=== PATIENT | male | born 2000 | race Caucasian/White ===

== ENCOUNTER 2020-07-04 21:07 | Observation (INO) | payer BC, SELFPAY ==
[2020-07-04 23:19] LABS: Absolute Lymphocytes (CBC) 3.1 K/uL (0.7-4.9); Basophils % 0.5 % (0-1.3); Hematocrit 48.7 % (39.6-49.0); Lymphocytes % 23.9 % (15.3-44.8); MPV 8.5 fL (7.6-11.3); RBC Red Blood Cell Count 5.58 M/uL (4.33-5.43)
[2020-07-04] MEDS ORDERED: FAMOTIDINE 20 MG/2 ML VIAL IV ONE (23:20)
[2020-07-04] MEDS ORDERED: NA CHLORIDE 0.9% 1,000 ML ONE (23:20)
[2020-07-04] MEDS ORDERED: ONDANSETRON 4 MG/2 ML VIAL ONE (23:20)
[2020-07-05 00:19] LABS: ALT/SGPT 45 U/L (12-78); Albumin 4.3 g/dL (3.4-5.0); Alkaline Phosphatase 65 U/L (45-117); BUN Blood Urea Nitrogen 16 mg/dL (7-18); Bicarbonate 24 mmol/L (21-32); Bilirubin Direct 0.1 mg/dL (0-0.2); Bilirubin Total 0.4 mg/dL (0.2-1.0); Glucose Level 90 mg/dL (74-106); Lipase 64 U/L (73-393); Protein, Total 7.8 g/dL (6.4-8.2); Sodium Level 140 mmol/L (136-145); Troponin (Emerg Dept Use Only) < 0.02 ng/mL (0.0-0.045)
[2020-07-05 00:21] LABS: AST/SGOT 57 U/L (15-37); Potassium 3.8 mmol/L (3.5-5.1)
[2020-07-05 00:22] LABS: Creatine Phosphokinase 3033 U/L (39-308)
[2020-07-05] MEDS ORDERED: NA CHLORIDE 0.9% 1,000 ML ONE ×3 (01:12→04:29)
--- NOTE | 2020-07-05 02:31 | EDPHYS ---
Physician Documentation [facility] Name: Leo Oden Age: 19 yrs Sex: Male : 2000 Arrival Date: 07/04/2020 Time: 21:13 Bed 7 Private MD: ED Physician ePrry Gerber HPI: 07/04 23:08 This 19 yrs old Male presents to ER via Ambulatory with complaints of mh7 Palpitations. 23:08 The patient presents with a history of heart racing. Context: The symptoms occur at mh7 rest, with anxiety. 23:08 Onset: The symptoms/episode began/occurred 2 day(s) ago. Duration: The patient or mh7 guardian reports multiple episodes, that are intermittent, that wax and wane. Modifying factors: The symptoms are aggravated by anxiety, The symptoms are alleviated by nothing. 23:09 Associated signs and symptoms: Pertinent positives: anxiety, nausea, vomiting, mh7 Abdominal pain, Pertinent negatives: chest pain, cough, fever, lightheadedness, SOB, syncope, near-syncope, unusual stressors, vertigo. Severity of symptoms: At their worst the symptoms were moderate yesterday, in the emergency department the symptoms have improved moderately. Historical: - Allergies: 21:25 No Known Allergies; ca1 - PMHx: 21:25 Anxiety; Depression; ca1 - PSHx: 21:25 Cholecystectomy; ca1 - Immunization history:: Flu vaccine is not up to date. - Social history:: Smoking status: Patient denies any tobacco usage or history of. ROS: 23:09 Constitutional: Negative for fever, chills, and weight loss, Eyes: Negative for injury, mh7 pain, redness, and discharge, ENT: Negative for injury, pain, and discharge, Neck: Negative for injury, pain, and swelling, Respiratory: Negative for shortness of breath, cough, wheezing, and pleuritic chest pain, Back: Negative for injury and pain, : Negative for injury, bleeding, discharge, and swelling, MS/Extremity: Negative for injury and deformity, Skin: Negative for injury, rash, and discoloration, Neuro: Negative for headache, weakness, numbness, tingling, and seizure, Allergy/Immunology: Negative for hives, rash, and allergies, Endocrine: Negative for neck swelling, polydipsia, polyuria, polyphagia, and marked weight changes, Hematologic/Lymphatic: Negative for swollen nodes, abnormal bleeding, and unusual bruising. Exam: 23:09 Head/Face: Normocephalic, atraumatic. Eyes: Pupils equal round and reactive to light, mh7 extra-ocular motions intact. Lids and lashes normal. Conjunctiva and sclera are non-icteric and not injected. Cornea within normal limits. Periorbital areas with no swelling, redness, or edema. Neck: Trachea midline, no thyromegaly or masses palpated, and no cervical lymphadenopathy. Supple, full range of motion without nuchal rigidity, or vertebral point tenderness. No Meningismus. Chest/axilla: Normal chest wall appearance and motion. Nontender with no deformity. No lesions are appreciated. Cardiovascular: Regular rate and rhythm with a normal S1 and S2. No gallops, murmurs, or rubs. Normal PMI, no JVD. No pulse deficits. Respiratory: Lungs have equal breath sounds bilaterally, clear to auscultation and percussion. No rales, rhonchi or wheezes noted. No increased work of breathing, no retractions or nasal flaring. Abdomen/GI: Soft, non-tender, with normal bowel sounds. No distension or tympany. No guarding or rebound. No evidence of tenderness throughout. Back: No spinal tenderness. No costovertebral tenderness. Full range of motion. Skin: Warm, dry with normal turgor. Normal color with no rashes, no lesions, and no evidence of cellulitis. MS/ Extremity: Pulses equal, no cyanosis. Neurovascular intact. Full, normal range of motion. Neuro: Awake and alert, GCS 15, oriented to person, place, time, and situation. Cranial nerves II-XII grossly intact. Motor strength 5/5 in all extremities. Sensory grossly intact. Cerebellar exam normal. Normal gait. 23:09 Constitutional: The patient appears in no acute distress, alert, awake, anxious. 23:09 Psych: Behavior/mood is cooperative, anxious, Affect is calm, Oriented to person, place, time, Patient has no thoughts/intents to harm self or others. Judgement / Insight is normal. Memory is normal. Delusions/hallucinations are not present. Vital Signs: 21:20 BP 111 / 89; Pulse 91; Resp 16 S; Temp 98.5(TE); Pulse Ox 98% on R/A; Weight 113.4 kg ca1 (R); Height 6 ft. 3 in. (190.50 cm) (R); Pain 0/10; 23:00 BP 135 / 74; Pulse 72; Resp 16; Pulse Ox 99% ; rr5 02 00:00 BP 126 / 68; Pulse 69; Resp 16; Pulse Ox 99% ; rr5 01:00 BP 140 / 57; Pulse 67; Resp 16; Pulse Ox 98% ; rr5 02:00 BP 135 / 89; Pulse 69; Resp 17; Pulse Ox 98% ; rr5 02:42 BP 125 / 89; Pulse 62; Resp 17; Pulse Ox 99% ; rr5 03:20 BP 136 / 89; Pulse 70; Resp 17; Pulse Ox 98% ; rr5 04:00 BP 121 / 75; Pulse 69; Resp 15; Temp 98; Pulse Ox 98% ; rr5 02 21:20 Body Mass Index 31.25 (113.40 kg, 190.50 cm) ca1 MDM: 02:28 Differential diagnosis: arrythmia, dehydration, stress disorder. Data reviewed: [facility] signs, nurses notes, lab test result(s), CBC, electrolytes, urinalysis, EKG, radiologic studies, CT scan, plain films. Data interpreted: Pulse oximetry: on room air is 98 %. Interpretation: normal. Counseling: I had a detailed discussion with the patient and/or guardian regarding: the historical points, exam findings, and any diagnostic results supporting the discharge/admit diagnosis, the presence of at least one elevated blood pressure reading (>120/80) during this emergency department visit, lab results, radiology results, the need for further work-up and treatment in the hospital. Response to treatment: the patient's symptoms have mildly improved after treatment. 02:30 Patient medically screened. [facility] 07/04 23:02 Order name: Basic Metabolic Panel [facility] 07/04 23:02 Order name: CBC with Diff; Complete Time: 00:06 [facility] 07/04 23:02 Order name: Hepatic Function [facility] 07/04 23:02 Order name: Lipase; Complete Time: 00:37 [facility] 07/04 23:02 Order name: UDS [facility] 07/04 23:02 Order name: TSH; Complete Time: 00:37 [facility] 07/04 23:02 Order name: Acetaminophen; Complete Time: 00:37 [facility] 07/04 23:02 Order name: ETOH Level; Complete Time: 00:06 [facility] 07/04 23:02 Order name: Salicylate; Complete Time: 00:06 [facility] 07/04 23:02 Order name: Basic Metabolic Panel; Complete Time: 00:37 [facility] 07/04 23:02 Order name: Liver (Hepatic) Function; Complete Time: 00:37 [facility] 07/04 23:07 Order name: Troponin (emerg Dept Use Only) [facility] 07/04 23:07 Order name: CPK [facility] 07/04 23:07 Order name: D-Dimer; Complete Time: 00:06 [facility] 07/04 23:02 Order name: Chest Single View XRAY [facility] 07/04 23:08 Order name: Troponin (Emerg Dept Use Only); Complete Time: 00:37 [facility] 07/04 23:08 Order name: Creatine Phosphokinase; Complete Time: 00:37 [facility] 07/05 00:06 Order name: CT Abd/Pelvis - IV Contrast Only [facility] 07/05 00:23 Order name: T4 Free; Complete Time: 00:37 [facility] 07/05 02:43 Order name: Urine Dipstick--Ancillary (enter results) 3 07/05 04:08 Order name: SARS-COV-2 RT PCR [facility] 07/05 05:13 Order name: Urinalysis [facility] 07/05 05:14 Order name: Basic Metabolic Panel [facility] 07/05 05:14 Order name: Creatine Phosphokinase [facility] 07/04 21:25 Order name: EKG; Complete Time: 21:26 [facility] 07/04 21:25 Order name: EKG - Nurse/Tech; Complete Time: 21:28 [facility] 07/04 23:02 Order name: IV Saline Lock; Complete Time: 23:13 [facility] 07/04 23:02 Order name: Labs collected and sent; Complete Time: 23:13 [facility] 07/04 23:02 Order name: Urine Dipstick-Ancillary (obtain specimen); Complete Time: 02:52 [facility] Administered Medications: 07/04 23:00 Drug: NS 0.9% 1000 ml Route: IV; Rate: 1000 ml; Site: right antecubital; rr5 07/05 01:00 Follow up: Response: No adverse reaction; IV Status: Completed infusion; IV Intake: rr5 1000ml 02/06 23:00 Drug: Zofran (Ondansetron) 4 mg Route: IVP; Site: right antecubital; rr5 07/05 02:02 Follow up: Response: No adverse reaction ea 07/04 23:04 Drug: Pepcid 20 mg Route: IVP; Site: right antecubital; rr5 07/05 02:02 Follow up: Response: No adverse reaction ea 01:00 Drug: NS 0.9% 1000 ml Route: IV; Rate: 1000 ml; Site: right antecubital; rr5 04:31 Follow up: Response: No adverse reaction; IV Status: Completed infusion; IV Intake: rr5 1000ml 04:30 Drug: NS 0.9% 1000 ml Route: IV; Rate: 125 ml/hr; Site: right antecubital; rr5 04:32 Follow up: IV Status: Infusion continued upon admission rr5 Disposition: 07/05/20 02:30 Hospitalization ordered by Tae Diaz for Observation. Preliminary diagnosis are Rhabdomyolysis, Vomiting. - Bed requested for [facility] ER HOLD. - Status is Observation. bp - Condition is Stable. - Problem is new. - Symptoms have improved. Signatures: Dispatcher [employer] EDPA Cem Nicholas RN RN sg Trenton Lara, HOG ROOM SUPERVISOR-C HOG ROOM SUPERVISOR-Cla1 Irving Bruner, RN RN Fred Oneil, RN RN rr5 Kari Zarate RN RN [facility] Perry Gerber MD MD mh7 Antunez, Elena RN ea Corrections: (The following items were deleted from the chart) 03:01 02:30 Hospitalization Ordered by Fred Parker MD for Observation. Preliminary la1 diagnosis is Rhabdomyolysis; Vomiting. Bed requested for Telemetry/MedSurg (observation). Status is Observation. Condition is Stable. Problem is new. Symptoms have improved. [facility] 03:06 02:37 CORONAVIRUS+MR.LAB.BRZ ordered. EDPA EDMS 03:47 03:01 07/05/2020 02:30 Hospitalization Ordered by Tae Diaz DO for Observation. sg Preliminary diagnosis is Rhabdomyolysis; Vomiting. Bed requested for Telemetry/MedSurg (observation). Status is Observation. Condition is Stable. Problem is new. Symptoms have improved. la1 08:27 03:47 07/05/2020 02:30 Hospitalization Ordered by Tae Diaz DO for Observation. bp Preliminary diagnosis is Rhabdomyolysis; Vomiting. Bed requested for [facility] ER HOLD. Status is Observation. Condition is Stable. Problem is new. Symptoms have improved. sg
--- NOTE | 2020-07-05 02:31 | ER ---
Nurse's Notes [facility] Name: Leo Oden Age: 19 yrs Sex: Male : 2000 Arrival Date: 07/04/2020 Time: 21:13 Bed 7 Private MD: Diagnosis: Rhabdomyolysis;Vomiting Presentation: 07/04 21:20 Chief complaint: Patient states: been having this weird feeling. All day today been ca1 having pain right here (epigastric region). Reports N/V. Denies diarrhea Parent and/or Guardian states: mother: he has sever anxiety and depression. 2 days ago, he complained that his heart feel like it's racing, and pounding out of his chest. Again tonight, he said the same and it could be his new medication Resperidone 2mg and stopped taking this medication 2 days ago. pt appears anxious in triage. Coronavirus screen: Client denies travel out of the [place] in the last 14 days. nausea, vomiting. Client presents with at least one sign or symptom that may indicate coronavirus-19. Standard/surgical mask placed on the client. Provider contacted for isolation considerations. Ebola Screen: Patient negative for fever greater than or equal to 101.5 degrees Fahrenheit, and additional compatible Ebola Virus Disease symptoms Patient denies exposure to infectious person. Patient denies travel to an Ebola-affected area in the 21 days before illness onset. No symptoms or risks identified at this time. Initial Sepsis Screen: Does the patient meet any 2 criteria? No. Patient's initial sepsis screen is negative. Does the patient have a suspected source of infection? No. Patient's initial sepsis screen is negative. Risk Assessment: Do you want to hurt yourself or someone else? Patient reports no desire to harm self or others. Onset of symptoms was July 04, 2020. 21:20 Method Of Arrival: Ambulatory ca1 21:20 Acuity: SOPHIA 3 ca1 Historical: - Allergies: 21:25 No Known Allergies; ca1 - PMHx: 21:25 Anxiety; Depression; ca1 - PSHx: 21:25 Cholecystectomy; ca1 - Immunization history:: Flu vaccine is not up to date. - Social history:: Smoking status: Patient denies any tobacco usage or history of. Screenin:01 Abuse screen: Denies threats or abuse. Denies injuries from another. Nutritional rr5 screening: No deficits noted. Tuberculosis screening: No symptoms or risk factors identified. Fall Risk IV access (20 points). Total Camejo Fall Scale indicates No Risk (0-24 pts). Assessment: 22:50 General: Appears in no apparent distress. uncomfortable, Behavior is anxious. rr5 22:50 Pain: Complains of pain in epigastric area Pain currently is 5 out of 10 on a pain rr5 scale. Quality of pain is described as aching, Pain began gradually, Is intermittent. Neuro: Level of Consciousness is awake, alert, obeys commands, Oriented to person, place, time, situation. Cardiovascular: Reports palpitations, Capillary refill < 3 seconds Patient's skin is warm and dry. Respiratory: Airway is patent Respiratory effort is even, unlabored, Respiratory pattern is regular, symmetrical. GI: Reports upper abdominal pain, nausea. : No signs and/or symptoms were reported regarding the genitourinary system. EENT: No signs and/or symptoms were reported regarding the EENT system. Derm: Skin is intact, is healthy with good turgor, Skin temperature is warm. Musculoskeletal: Circulation, motion, and sensation intact. Capillary refill < 3 seconds. 07/05 00:05 Reassessment: Patient appears in no apparent distress at this time. Patient and/or rr5 family updated on plan of care and expected duration. Pain level reassessed. Patient is alert, oriented x 3, equal unlabored respirations, skin warm/dry/pink. awaiting for results. 01:00 Reassessment: Patient appears in no apparent distress at this time. Patient is alert, rr5 oriented x 3, equal unlabored respirations, skin warm/dry/pink. back from CT scan. Reassessment:. 02:20 Reassessment: Patient appears in no apparent distress at this time. Patient is alert, rr5 oriented x 3, equal unlabored respirations, skin warm/dry/pink. patient agreed for admission. 03:20 Reassessment: Patient appears in no apparent distress at this time. Patient and/or rr5 family updated on plan of care and expected duration. Pain level reassessed. Patient is alert, oriented x 3, equal unlabored respirations, skin warm/dry/pink. 04:32 Reassessment: Patient appears in no apparent distress at this time. Patient is alert, rr5 oriented x 3, equal unlabored respirations, skin warm/dry/pink. no complaints made, admitted as ER hold. snacks given with good appetite. Vital Signs: 07/04 21:20 BP 111 / 89; Pulse 91; Resp 16 S; Temp 98.5(TE); Pulse Ox 98% on R/A; Weight 113.4 kg ca1 (R); Height 6 ft. 3 in. (190.50 cm) (R); Pain 0/10; 23:00 BP 135 / 74; Pulse 72; Resp 16; Pulse Ox 99% ; rr5 07/05 00:00 BP 126 / 68; Pulse 69; Resp 16; Pulse Ox 99% ; rr5 01:00 BP 140 / 57; Pulse 67; Resp 16; Pulse Ox 98% ; rr5 02:00 BP 135 / 89; Pulse 69; Resp 17; Pulse Ox 98% ; rr5 02:42 BP 125 / 89; Pulse 62; Resp 17; Pulse Ox 99% ; rr5 03:20 BP 136 / 89; Pulse 70; Resp 17; Pulse Ox 98% ; rr5 04:00 BP 121 / 75; Pulse 69; Resp 15; Temp 98; Pulse Ox 98% ; rr5 02 21:20 Body Mass Index 31.25 (113.40 kg, 190.50 cm) ca1 ED Course: 07/04 21:13 Patient arrived in ED. am4 21:24 Triage completed. ca1 21:25 Arm band placed on right wrist. ca1 22:45 Perry Gerber MD is Attending Physician. mh7 22:46 Fred Trotter RN is Primary Nurse. rr5 23:00 Inserted saline lock: 20 gauge in right antecubital area, using aseptic technique. ea 23:01 Patient has correct armband on for positive identification. Bed in low position. Call rr5 light in reach. clerk of superior court on. Pulse ox on. NIBP on. 23:13 Initial lab(s) drawn, by ED staff, sent to lab. ea 23:27 Chest Single View XRAY In Process Unspecified. EDMS 07/05 00:22 Notified ED physician of a critical lab result(s). CPK 3033. sg 01:12 CT Abd/Pelvis - IV Contrast Only In Process Unspecified. EDMS 02:30 Fred Parker MD is Hospitalizing Provider. mh7 02:43 COVID swab sent to lab. rr5 03:01 Tae Diaz DO is Hospitalizing Provider. la1 04:32 No provider procedures requiring assistance completed. Patient admitted, IV remains in rr5 place. intact, No redness/swelling at site. 08:07 IV discontinued, intact, bleeding controlled, No redness/swelling at site. Pressure em1 dressing applied. Administered Medications: 07/04 23:00 Drug: NS 0.9% 1000 ml Route: IV; Rate: 1000 ml; Site: right antecubital; rr5 07/05 01:00 Follow up: Response: No adverse reaction; IV Status: Completed infusion; IV Intake: rr5 1000ml 07/04 23:00 Drug: Zofran (Ondansetron) 4 mg Route: IVP; Site: right antecubital; rr5 07/05 02:02 Follow up: Response: No adverse reaction ea 07/04 23:04 Drug: Pepcid 20 mg Route: IVP; Site: right antecubital; rr5 07/05 02:02 Follow up: Response: No adverse reaction ea 01:00 Drug: NS 0.9% 1000 ml Route: IV; Rate: 1000 ml; Site: right antecubital; rr5 04:31 Follow up: Response: No adverse reaction; IV Status: Completed infusion; IV Intake: rr5 1000ml 04:30 Drug: NS 0.9% 1000 ml Route: IV; Rate: 125 ml/hr; Site: right antecubital; rr5 04:32 Follow up: IV Status: Infusion continued upon admission rr5 Intake: 01:00 IV: 1000ml; Total: 1000ml. rr5 04:31 IV: 1000ml; Total: 2000ml. rr5 Outcome: 02:30 Decision to Hospitalize by Provider. mh7 04:32 Admitted to ER Hold. Please see [facility] for further documentation. rr5 04:32 Condition: stable 04:32 Instructed on the need for admit. 08:27 Patient left the ED. bp Signatures: Dispatcher [employer] EDMS Cem Nicholas RN Tristen Serrano em1 Trenton Lara, PROMOTIONAL ADVERTISING ASSISTANT-C PROMOTIONAL ADVERTISING ASSISTANT-Cla1 Poonam Mao RN RN ea Peltier, Brian RN Fred Campos RN RN rr5 Kari Zarate RN ELVIA ca1 Perry Gerber MD MD 7 [place]
[2020-07-05 02:51] LABS: Urine Blood NEGATIVE (NEG); Urine Glucose NEGATIVE (NEG); Urine Protein NEGATIVE (NEG)
[2020-07-05 03:25] LABS: Barbiturates NEGATIVE (NEGATIVE); Benzodiazepines NEGATIVE (NEGATIVE); Cocaine NEGATIVE (NEGATIVE); METHAMPHETAM NEGATIVE (NEGATIVE); Methadone NEGATIVE (NEGATIVE); Opiates NEGATIVE (NEGATIVE); Phencyclidine NEGATIVE (NEGATIVE); THC Cannibis POSITIVE (NEGATIVE)
--- NOTE | 2020-07-05 03:47 | P.HP ---
Certification for Inpatient Patient admitted to: Observation Patient will require the following post-hospital care: None Practitioner: I am a practitioner with admitting privileges, knowledge of patient current condition, hospital course, and medical plan of care. Services: Services provided to patient in accordance with Admission requirements found in Title 42 Section 412.3 of the Code of Federal Regulations <JaneTrenton - Last Filed: 07/05/20 03:43> Patient admitted to: Observation With expected LOS: <2 Midnights <Tae Diaz - Last Filed: 07/05/20 07:28> Patient History Date of Service: 07/05/20 Primary Care Provider: unknown Reason for admission: Rhabdomyolysis History of Present Illness: 19-year-old male with history of severe anxiety presents emergency department for palpitations, nausea vomiting. Patient reports that over the course of the last couple days he has been having palpitations and just today he started having vomiting reporting vomiting 3-4 times today. Patient without any abdominal pain, currently tolerating clear liquids. Patient reports that he was prescribed risperidone 2 mg once daily, on 05/07/2020, he felt like this may be the reason he is having the palpitations so she discontinued this medication approximately 2 days ago. Patient was worked up in the emergency department lab significant for white blood cell count 13.1, GFR 84 CPK 3033 TSH 3.91, free T4 1.11 positive for THC. The patient was given 2 L normal saline bolus in the emergency department on, ED provider wishes to admit patient under observation for nausea, vomiting, rhabdomyolysis. - Past Medical/Surgical History -: Anxiety -: none Psychosocial/ Personal History: Patient unemployed, lives with his family - Social History Smoking Status: Never smoker Alcohol use: No CD- Drugs: Yes Caffeine use: Yes Place of Residence: Home <Trenton Lara - Last Filed: 07/05/20 03:43> Date of Service: 07/05/20 Primary Care Provider: Dr. Serna; [facility] <Tae Diaz - Last Filed: 07/05/20 07:28> Allergies No Known Allergies Allergy (Verified 01/26/15 16:11) Home Medications: Codeine/APAP [Tylenol W/Codeine #3 tab] 1 tab PO Q4H PRN #30 tab 01/28/15 Sulfamethoxazole/Trimethoprim [Bactrim Ds Tablet] 1 each PO BID #10 tablet 01/28/15 Review of Systems Unremarkable Cardiovascular: Palpitations Gastrointestinal: Nausea, Vomiting <Trenton Lara - Last Filed: 07/05/20 03:43> Physical Examination - Physical Exam General: Alert, In no apparent distress HEENT: Atraumatic, PERRLA, Mucous membr. moist/pink Neck: Supple, 2+ carotid pulse no bruit, No LAD Respiratory: Clear to auscultation bilaterally, Normal air movement Cardiovascular: Regular rate/rhythm, Normal S1 S2 Gastrointestinal: Normal bowel sounds, No tenderness Musculoskeletal: No tenderness Integumentary: No rashes Neurological: Normal speech, Normal strength at 5/5 x4 extr, Normal tone, Normal affect - Studies Laboratory Data (last 24 hrs) 07/04/20 23:10: WBC 13.10 H, Hgb 16.1, Hct 48.7, Plt Count 185 07/04/20 23:10: Sodium 140, Potassium 3.8, BUN 16, Creatinine 1.11, Glucose 90, Total Bilirubin 0.4, AST 57 H, ALT 45, Alkaline Phosphatase 65, Lipase 64 L <Trenton Lara - Last Filed: 07/05/20 03:43> - Studies Laboratory Data (last 24 hrs) 07/04/20 23:10: WBC 13.10 H, Hgb 16.1, Hct 48.7, Plt Count 185 07/04/20 23:10: Sodium 140, Potassium 3.8, BUN 16, Creatinine 1.11, Glucose 90, Total Bilirubin 0.4, AST 57 H, ALT 45, Alkaline Phosphatase 65, Lipase 64 L <Tae Diaz - Last Filed: 07/05/20 07:28> Assessment and Plan - Plan Assessment Rhabdomyolysis likely secondary to combination of nausea/vomiting and use of risperidone Plan Rhabdomyolysis likely secondary to combination of nausea/vomiting and use of risperidone: Patient to 2 L normal saline bolus in ER, continue with maintenance fluids overnight, recheck CPK in the morning. Recommend holding risperidone. Advance diet as tolerated, p.r.n. medications for nausea. Chemistry with morning labs. Anticipate discharge tomorrow morning. Discharge Plan: Home Plan to discharge in: 24 Hours - Advance Directives Does patient have a Living Will: No Does patient have a Durable POA for Healthcare: No - Code Status/Comfort Care Code Status Assessed: Yes (Full code) Critical Care: No Time Spent Managing Pts Care (In Minutes): 55 <Trenton Lara - Last Filed: 07/05/20 03:43> - Plan Case discussed in detail with nurse practitioner. Agree with plan of care. Please see discharge order and summary for details. <Tae Diaz - Last Filed: 07/05/20 07:28>
[2020-07-05] MEDS ORDERED: MELATONIN 5 MG TABLET PO PRN (04:11)
[2020-07-05] MEDS ORDERED: ONDANSETRON 4 MG/2 ML VIAL IV PRN (04:11)
[2020-07-05] MEDS ORDERED: NA CHLORIDE 0.9% 1,000 ML IV SCH (04:11)
[2020-07-05] MEDS ORDERED: ACETAMINOPHEN 500 MG TAB PO PRN (04:11)
[2020-07-05 04:42] VITALS: BMI 31.1
[2020-07-05 05:06] LABS: Urine Appearance CLEAR; Urine Bilirubin NEGATIVE (NEG); Urine Blood NEGATIVE (NEG); Urine Color YELLOW; Urine Glucose NEGATIVE (NEG); Urine Protein NEGATIVE (NEG); Urine Specific Gravity >=1.030 (1.005-1.030); Urine Urobilinogen 0.2 mg/dL (0.2-1.0)
[2020-07-05 05:12] LABS: BUN Blood Urea Nitrogen 12 mg/dL (7-18); Bicarbonate 25 mmol/L (21-32); Glucose Level 91 mg/dL (74-106); Potassium 4.1 mmol/L (3.5-5.1); Sodium Level 140 mmol/L (136-145)
[2020-07-05 05:13] LABS: Urine Microscopic Reflex NO UMIC
[2020-07-05 05:13] LABS: Creatine Phosphokinase 2071 U/L (39-308)
[2020-07-05] MEDS ORDERED: NA CHLORIDE 0.9% 500 ML ONE (06:36)
[2020-07-05] MEDS ORDERED: NA CHLORIDE 0.9% 500 ML IV ONE (07:21)
--- NOTE | 2020-07-05 07:37 | P.DS ---
Admission Date: 07/05/20 Discharge Date: 07/05/20 Primary Care Provider: Dr. Serna; [facility] Disposition: ROUTINE DISCHARGE Discharge Condition: GOOD Reason for Admission: Acute rhabdomyolysis Consultations: none Procedures: COVID: Negative Medical problem list: Rhabdomyolysis likely secondary to combination of nausea/vomiting and use of risperidone Depression with anxiety THC use Brief History of Present Illness: 19-year-old male with history of depression/severe anxiety presents emergency department for palpitations, nausea, and vomiting. Patient reports that over the course of the last couple days he has been having palpitations and just today he started having vomiting reporting vomiting 3-4 times today. Patient without any abdominal pain, currently tolerating clear liquids. Patient reports that he was prescribed risperidone 2 mg once daily, on 05/07/2020, he felt like this may be the reason he is having the palpitations so he discontinued this medication approximately 2 days ago. In the ER, lab significant for white blood cell count 13.1, GFR 84 CPK 3033 TSH 3.91, free T4 1.11 positive for THC. Patient was admitted for further evaluation and treatment. Hospital Course: Patient presented with nausea, vomiting and palpitation. Patient found to have acute rhabdomyolysis. Patient had been seen at the [facility] for depression and severe anxiety. Patient reports starting risperidone over the past several weeks. He apparently stopped the medication about 2 days ago due to the recent side effects. Patient was evaluated numbers acute rhabdomyolysis. Patient was also positive for THC which he reports he takes for anxiety. The patient was given IV fluids with improvement. Patient without significant nausea, vomiting. Discharge lab-CPK improved. At discharge will recommend to increase fluid intake over the next week. Will also recommend to discontinue risperidone as this may be a contributing cause to nausea, vomiting and palpitation. Recommend to decrease THC as this may also increased nausea and vomiting. Recommend for the patient to follow up with his PCP within 1 week. Recommend to recheck lab-CBC, BMP and CPK at that time. Recommend to also follow up at the [facility] to further evaluate his depression with anxiety. Other alternative medication may be required. This can be done with the help of his psychiatrist. General: Alert, In no apparent distress, Oriented x3, Cooperative HEENT: Atraumatic Neck: Supple Respiratory: Clear to auscultation bilaterally, Normal air movement Cardiovascular: Normal pulses, Regular rate/rhythm Gastrointestinal: Normal bowel sounds, No ascites, No tenderness, No masses, No rebound, No guarding Musculoskeletal: No erythema, No tenderness, No warmth Neurological: Normal speech, Normal strength at 5/5 x4 extr, Normal tone, Abnormal affect (Flat affect. Suicidal ideation. Patient appears to be at his baseline mentation.) Laboratory Data at Discharge: WBC 13.10 K/uL (4.3-10.9) H 07/04/20 23:10 Hgb 16.1 g/dL (13.6-17.9) 07/04/20 23:10 Hct 48.7 % (39.6-49.0) 07/04/20 23:10 Plt Count 185 K/uL (152-406) 07/04/20 23:10 Sodium 140 mmol/L (136-145) 07/05/20 04:20 Potassium 4.1 mmol/L (3.5-5.1) 07/05/20 04:20 BUN 12 mg/dL (7-18) 07/05/20 04:20 Creatinine 0.93 mg/dL (0.55-1.3) 07/05/20 04:20 Glucose 91 mg/dL (74-106) 07/05/20 04:20 Total Bilirubin 0.4 mg/dL (0.2-1.0) 07/04/20 23:10 AST 57 U/L (15-37) H 07/04/20 23:10 ALT 45 U/L (12-78) 07/04/20 23:10 Alkaline Phosphatase 65 U/L (45-117) 07/04/20 23:10 Lipase 64 U/L (73-393) L 07/04/20 23:10 Physician Discharge Instructions: Follow up with PCP in 1 week. Patient presented with nausea, vomiting and palpitation. Patient found to have acute rhabdomyolysis. Patient had been seen at the [facility] for depression and severe anxiety. Patient reports starting risperidone over the past several weeks. He apparently stopped the medication about 2 days ago due to the recent side effects. Patient was evaluated numbers acute rhabdomyolysis. Patient was also positive for THC which he reports he takes for anxiety. The patient was given IV fluids with improvement. Patient without significant nausea, vomiting. Discharge lab-CPK improved. At discharge will recommend to increase fluid intake over the next week. Will also recommend to discontinue risperidone as this may be a contributing cause to nausea, vomiting and palpitation. Recommend to decrease THC as this may also increased nausea and vomiting. Recommend for the patient to follow up with his PCP within 1 week. Recommend to recheck lab-CBC, BMP and CPK at that time. Recommend to also follow up at the [facility] to further evaluate his depression with anxiety. Other alternative medication may be required. This can be done with the help of his psychiatrist. Diet: Regular Activity: Ad ashlie Followup: Kel Granger PA [Primary Care Provider] - Time spent managing pt's care (in minutes): 55
[2020-07-05 07:50] VITALS: BP 136/70; TEMP 99.1
[2020-07-05 08:39] VITALS: O2SAT 98
[2020-07-05] MEDS ORDERED: ENOXAPARIN 40 MG/0.4 ML SQ SCH (09:00)
--- NOTE | 2020-07-05 12:20 | RAD REPORT ---
EXAM DESCRIPTION: RAD - Chest Single View - 07/04/2020 11:28 pm CLINICAL HISTORY: PALPITATIONS Chest pain. COMPARISON: CTANGIO CHEST FOR PE dated 04/13/2013CHEST PA AND LAT 2 VIEW dated 03/07/2008 FINDINGS: Portable technique limits examination quality. The lungs are grossly clear. The heart is normal in size. No displaced fractures. IMPRESSION: No acute intrathoracic process suspected.
--- NOTE | 2020-07-06 11:47 | RAD REPORT ---
EXAM DESCRIPTION: CT Abdomen and Pelvis With Intravenous Contrast CLINICAL HISTORY: The patient is 19 years old and is Male; Abd pain;Nausea / vomiting TECHNIQUE: Axial computed tomography images of the abdomen and pelvis with intravenous contrast. S agittal and coronal reformatted images were created and reviewed. This CT exam was performed using one or more of the following dose reduction techniques: automated exposure control, adjustment of t he mA and/or kV according to patient size, and/or use of iterative reconstruction technique.DLP: 165 0 mGy*cm COMPARISON: None. FINDINGS: LUNG BASES: Lung bases are clear.HEART: Visualized heart is normal.ABDOMEN: LIVER: Unremarkable. No mass.GALLBLADDER AND BILE DUCTS: Prior cholecystectomy. No ductal di lation.PANCREAS: Unremarkable. No mass. No ductal dilation.SPLEEN: Unremarkable. No splen omegaly.ADRENALS: Unremarkable. No mass.KIDNEYS AND URETERS: Unremarkable. No solid mass. No hydronephrosis.STOMACH AND BOWEL: Unremarkable. No obstruction. No mucosal thickening.PELV IS: APPENDIX: The appendix is seen and is within normal limits.BLADDER: Unremarkable. No mas s.REPRODUCTIVE: Unremarkable as visualized.ABDOMEN and PELVIS: INTRAPERITONEAL SPACE: Unremarka ble. No free air. No significant fluid collection.BONES/JOINTS: Small retrolisthesis of L4 on L5 and associated spondylosis with spinal canal and right foraminal narrowing. No acute fract ure. No dislocation.SOFT TISSUES: Unremarkable.VASCULATURE: Unremarkable. No abdominal aort ic aneurysm.LYMPH NODES: Unremarkable. No enlarged lymph nodes. IMPRESSION: 1. No acute abdominal or pelvic abnormality. 2. Small retrolisthesis of L4 on L5 and associated spondylosis with spinal canal and right foraminal narrowing. Nonemergent MR lumbar spin e evaluation may be of diagnostic use. Electronically signed by: Isreal Heck DO 07/05/2020 1:24 AM RADIOGRAPHER Due to temporary technical issues with the PACS/Fluency reporting system, reports are being signed by the in house radiologist without review as a courtesy to ensure prompt reporting. The interpreting r adiologist is fully responsible for the content of the report.
== END 2020-07-05 08:24 | disposition home or self-care (01) ==
LOC: ER 21:07 → ERHOLD 07-05 03:02
PROVIDERS: ADMIT Family Medicine; ATTEND Family Medicine
DX: M62.82 Rhabdomyolysis (principal); R11.2 Nausea with vomiting, unspecified; T43.595A Adverse effect of other antipsychotics and neuroleptics, initial encounter; F41.8 Other specified anxiety disorders; F12.90 Cannabis use, unspecified, uncomplicated; Z20.822 Contact with and (suspected) exposure to COVID-19
CPT/HCPCS: 36415; 71045; 74177; 80048; 80076; 80307; 80320; 80329; 81003; 82550; 83690; 84439; 84443; 84484; 85025; 85379; 93005; 96361; 96374; 96375; 99285; G0378; J2405; J7030; J7040; Q9967; U0003

== ENCOUNTER 2020-07-08 17:32 | Emergency (ER) | payer SELFPAY ==
[2020-07-08 19:14] LABS: Absolute Lymphocytes (CBC) 4.3 K/uL (0.7-4.9); Basophils % 0.5 % (0-1.3); Hematocrit 46.4 % (39.6-49.0); Lymphocytes % 34.4 % (15.3-44.8); MPV 8.2 fL (7.6-11.3); RBC Red Blood Cell Count 5.41 M/uL (4.33-5.43)
[2020-07-08 19:15] LABS: Urine Blood NEGATIVE (NEG); Urine Glucose NEGATIVE (NEG); Urine Protein NEGATIVE (NEG)
[2020-07-08 19:22] LABS: Urine Bacteria <20 /HPF (NONE SEEN); Urine Mucus 1+ /HPF (NONE SEEN); Urine RBC NONE SEEN /HPF (NONE SEEN)
[2020-07-08] MEDS ORDERED: NA CHLORIDE 0.9% 1,000 ML ONE (19:28)
[2020-07-08 19:30] LABS: Albumin 4.4 g/dL (3.4-5.0); Bilirubin Direct 0.2 mg/dL (0-0.2); Bilirubin Total 0.6 mg/dL (0.2-1.0); Potassium 3.6 mmol/L (3.5-5.1); Protein, Total 7.8 g/dL (6.4-8.2)
[2020-07-08 19:31] LABS: Barbiturates NEGATIVE (NEGATIVE); Benzodiazepines NEGATIVE (NEGATIVE); Cocaine NEGATIVE (NEGATIVE); METHAMPHETAM NEGATIVE (NEGATIVE); Methadone NEGATIVE (NEGATIVE); Opiates NEGATIVE (NEGATIVE); Phencyclidine NEGATIVE (NEGATIVE); THC Cannibis POSITIVE (NEGATIVE)
--- NOTE | 2020-07-08 20:07 | RAD REPORT ---
EXAM DESCRIPTION: CT - Abdomen Pelvis W Contrast - 07/08/2020 7:54 pm CLINICAL HISTORY: Abdominal pain COMPARISON: July 05, 2020 TECHNIQUE: Computed axial tomography of the abdomen pelvis was obtained. 100 cc Isovue-300 was admin istered intravenously. Oral contrast was not requested which limits evaluation of bowel. All CT scans are performed using dose optimization technique as appropriate and may include automated exposure control or mA/KV adjustment according to patient size. FINDINGS: The liver, spleen, pancreas, adrenal and kidneys appear unremarkable. There is no evidence of diverticulitis. Normal appendix Cholecystectomy. Slight posterior subluxation L4 on L5 and L5 on S1 IMPRESSION: No acute abnormality is displayed.
--- NOTE | 2020-07-08 20:51 | ER ---
Nurse's Notes [facility] Name: Leo Oden Age: 19 yrs Sex: Male : 2000 Arrival Date: 07/08/2020 Time: 17:33 Bed 23 Private MD: Diagnosis: Upper abdominal pain, unspecified;Low back pain Presentation: 07/08 17:48 Chief complaint: Patient states: left low back pain only at night. "I can't keep sv hydrated during the night because I'm asleep. I was talking with my mental doctor and they told me to come in." Pt reports being seen here a few days ago for "muscle breakdown.". Coronavirus screen: Client denies travel out of the [place] in the last 14 days. At this time, the client does not indicate any symptoms associated with coronavirus-19. Ebola Screen: No symptoms or risks identified at this time. Risk Assessment: Do you want to hurt yourself or someone else? Patient reports no desire to harm self or others. Onset of symptoms was 2020. 17:48 Method Of Arrival: Ambulatory sv 17:48 Acuity: SOPHIA 4 sv 17:49 Initial Sepsis Screen: Does the patient meet any 2 criteria? No. Patient's initial sv sepsis screen is negative. Does the patient have a suspected source of infection? No. Patient's initial sepsis screen is negative. 18:46 Acuity: SOPHIA 3 iw Triage Assessment: 17:51 General: Appears in no apparent distress. comfortable, Behavior is calm, cooperative, sv appropriate for age. Neuro: Level of Consciousness is awake, alert, obeys commands, Oriented to person, place, time, situation, Gait is steady. Respiratory: Respiratory effort is even, unlabored. Historical: - Allergies: 17:49 No Known Allergies; sv - PMHx: 17:49 Anxiety; Depression; sv - PSHx: 17:49 Cholecystectomy; sv - Immunization history:: Adult Immunizations unknown. - Social history:: Smoking status: Patient/guardian denies using alcohol, tobacco products. Screenin:51 Abuse screen: Denies threats or abuse. Denies injuries from another. Nutritional iw screening: No deficits noted. Tuberculosis screening: No symptoms or risk factors identified. 20:00 Fall Risk None identified. lc1 Assessment: 18:50 General: Appears in no apparent distress. Behavior is calm, cooperative. Pain: iw Complains of pain in left mid back and right mid back. Neuro: Level of Consciousness is awake, alert, obeys commands, Oriented to person, place, time, situation, Moves all extremities. Full function. Cardiovascular: Patient's skin is warm and dry. Respiratory: Respiratory effort is even, unlabored, Respiratory pattern is regular, symmetrical. GI: Bowel sounds present X 4 quads. Abd is soft X 4 quads. Musculoskeletal: Range of motion: intact in all extremities. 20:00 Reassessment: No changes from previously documented assessment. Patient and/or family lc1 updated on plan of care and expected duration. Pain level reassessed. 21:11 Reassessment: No changes from previously documented assessment. Patient and/or family lc1 updated on plan of care and expected duration. Pain level reassessed. Vital Signs: 17:49 BP 116 / 67; Pulse 76; Resp 16; Temp 98.8; Pulse Ox 99% ; Weight 113.4 kg; Height 6 ft. sv 3 in. (190.50 cm); Pain 0/10; 19:17 BP 114 / 70; Pulse 53; Resp 16; Pulse Ox 98% on R/A; iw 20:00 BP 121 / 57; Pulse 59; Resp 18; lc1 21:07 BP 123 / 58; Pulse 74; Resp 18; lc1 17:49 Body Mass Index 31.25 (113.40 kg, 190.50 cm) sv ED Course: 17:33 Patient arrived in ED. ag5 17:48 Arm band placed on. sv 17:49 Triage completed. sv 18:04 Rachana Goodman, ELVIA is Primary Nurse. iw 18:16 Walker Plummer PA is PHCP. cp 18:16 Rene Valentin MD is Attending Physician. cp 19:05 Initial lab(s) drawn, by tn, sent to lab. Inserted saline lock: 20 gauge in right iw antecubital area, using aseptic technique. Blood collected. 19:[address] via wheelchair. lc1 19:53 CT Abd/Pelvis - IV Contrast Only In Process Unspecified. EDMS 20:00 Awaiting radiology results. lc1 20:00 Patient has correct armband on for positive identification. Bed in low position. Call lc1 light in reach. Side rails up X 1. 21:11 No provider procedures requiring assistance completed. IV discontinued, intact, lc1 bleeding controlled, No redness/swelling at site. Pressure dressing applied. Administered Medications: 19:17 Drug: NS 0.9% 1000 ml Route: IV; Rate: 1 bolus; Site: right antecubital; iw 20:23 Follow up: IV Status: Completed infusion; IV Intake: 1000ml lc1 Intake: 20:23 IV: 1000ml; Total: 1000ml. lc1 Outcome: 20:50 Discharge ordered by MD. cp 21:11 Discharged to home ambulatory. lc1 21:11 Condition: good 21:11 Discharge instructions given to patient, Instructed on discharge instructions, medication usage, Demonstrated understanding of instructions, medications, Prescriptions given X 1. 21:15 Patient left the ED. lc1 Signatures: Dispatcher [employer] EDRosa Swain RN Rachana Cee RN RN iw Calhoun, Beatriz lc1 Walker Plummer PA PA Castillo Mukherjee ag5 Corrections: (The following items were deleted from the chart) 17:52 17:49 Pulse 76bpm; Resp 16bpm; Pulse Ox 99%; Temp 98.8F; 113.4 kg; Height 6 ft. 3 in.; sv BMI: 31.2; Pain 0/10; sv
--- NOTE | 2020-07-08 20:51 | EDPHYS ---
Physician Documentation [facility] Name: Leo Oden Age: 19 yrs Sex: Male : 2000 Arrival Date: 07/08/2020 Time: 17:33 Bed 23 Private MD: ED Physician Rene Valentin HPI: 07/08 18:45 This 19 yrs old Male presents to ER via Ambulatory with complaints of Back cp Pain. 18:45 The patient presents with pain that is acute, with no known mechanism of injury. The cp symptoms are located in the left low back. The pain does not radiate. Associated signs and symptoms: Pertinent positives: upper abdomen pain. Patient reports recent hospitalization and discharge for rhabdomyolysis. Reports having similar pain when diagnosed with rhabdomyolysis. Denies fever. Historical: - Allergies: 17:49 No Known Allergies; sv - PMHx: 17:49 Anxiety; Depression; sv - PSHx: 17:49 Cholecystectomy; sv - Immunization history:: Adult Immunizations unknown. - Social history:: Smoking status: Patient/guardian denies using alcohol, tobacco products. ROS: 19:00 Constitutional: Negative for body aches, chills, fever, poor PO intake. cp 19:00 Eyes: Negative for injury, pain, redness, and discharge. cp 19:00 ENT: Negative for ear pain, sore throat, difficulty swallowing, difficulty handling secretions. 19:00 Cardiovascular: Negative for chest pain, edema, palpitations. 19:00 Respiratory: Negative for cough, shortness of breath, wheezing. 19:00 Abdomen/GI: Positive for abdominal pain, Negative for vomiting, diarrhea, constipation, anorexia, black/tarry stool, rectal bleeding, bowel incontinence. 19:00 Back: Positive for pain at rest, pain with movement, of the low back area. 19:00 : Negative for urinary symptoms, bladder incontinence, testicular pain 19:00 Neuro: Negative for altered mental status, headache, numbness, weakness. 19:00 All other systems are negative. Exam: 19:05 Constitutional: The patient appears in no acute distress, alert, awake, cp non-diaphoretic, non-toxic, well developed, well nourished. 19:05 Head/Face: Normocephalic, atraumatic. cp 19:05 Eyes: Periorbital structures: appear normal, Conjunctiva: normal, no exudate, no injection, Sclera: no appreciated abnormality, Lids and lashes: appear normal, bilaterally. 19:05 ENT: External ear(s): are unremarkable, Nose: is normal, Mouth: Lips: moist, Oral mucosa: moist, Posterior pharynx: Airway: no evidence of obstruction, patent. 19:05 Neck: ROM/movement: is normal, is supple, without pain, no range of motions limitations, no meningismus. 19:05 Chest/axilla: Inspection: normal, Palpation: is normal, no crepitus, no tenderness. 19:05 Cardiovascular: Rate: normal, Rhythm: regular, Edema: is not appreciated, JVD: is not appreciated. 19:05 Respiratory: the patient does not display signs of respiratory distress, Respirations: normal, no use of accessory muscles, no retractions, labored breathing, is not present, Breath sounds: are clear throughout, no decreased breath sounds, no stridor, no wheezing. 19:05 Abdomen/GI: Inspection: abdomen appears normal, Bowel sounds: active, all quadrants, Palpation: soft, in all quadrants, mild abdominal tenderness, in the epigastric area, rebound tenderness, is not appreciated, voluntary guarding, is not appreciated, involuntary guarding, is not appreciated. 19:05 Back: pain, that is mild, of the low back area, ROM is normal, CVA tenderness, is absent. 19:05 Skin: no rash present. 19:05 Neuro: Orientation: to person, place \T\ time. Mentation: is normal, Motor: moves all fours, strength is normal. Vital Signs: 17:49 BP 116 / 67; Pulse 76; Resp 16; Temp 98.8; Pulse Ox 99% ; Weight 113.4 kg; Height 6 ft. sv 3 in. (190.50 cm); Pain 0/10; 19:17 BP 114 / 70; Pulse 53; Resp 16; Pulse Ox 98% on R/A; iw 20:00 BP 121 / 57; Pulse 59; Resp 18; lc1 21:07 BP 123 / 58; Pulse 74; Resp 18; lc1 17:49 Body Mass Index 31.25 (113.40 kg, 190.50 cm) sv MDM: 18:20 Patient medically screened. cp 19:00 Differential diagnosis: Pyelonephritis Ureterolithiasis pancreatitis, cp choledocholithiasis, GERD, rhabdomyolysis. 20:48 Data reviewed: vital signs, nurses notes, lab test result(s), radiologic studies, CT cp scan. Counseling: I had a detailed discussion with the patient and/or guardian regarding: the historical points, exam findings, and any diagnostic results supporting the discharge/admit diagnosis, lab results, radiology results, to return to the emergency department if symptoms worsen or persist or if there are any questions or concerns that arise at home. Response to treatment: the patient's symptoms have markedly improved after treatment, patient is well hydrated. VSS. Reviewed results of labs and radiology studies. Will discharge to home for continued monitoring and oral hydration. 07/08 18:39 Order name: Basic Metabolic Panel cp 07/08 18:39 Order name: CBC with Diff cp 07/08 18:39 Order name: Hepatic Function cp 07/08 18:39 Order name: Lipase cp 07/08 18:39 Order name: Urine Microscopic Only cp 07/08 18:39 Order name: CK; Complete Time: 19:34 cp 07/08 19:34 Interpretation: CPK 310; Reviewed. cp 07/08 18:39 Order name: UDS; Complete Time: 19:34 cp 07/08 18:40 Order name: Basic Metabolic Panel; Complete Time: 19:34 EDMS 07/08 18:40 Order name: CBC with Automated Diff; Complete Time: 19:34 EDMS 07/08 18:40 Order name: Liver (Hepatic) Function; Complete Time: 19:34 EDMS 07/08 18:40 Order name: Lipase; Complete Time: 19:34 EDMS 07/08 18:40 Order name: Urine Microscopic Only; Complete Time: 19:34 EDMS 07/08 19:11 Order name: Urine Dipstick--Ancillary (enter results); Complete Time: 19:34 tt3 07/08 19:35 Order name: CT Abd/Pelvis - IV Contrast Only; Complete Time: 20:15 cp 07/08 20:16 Interpretation: Report reviewed. cp 07/08 18:39 Order name: IV Saline Lock; Complete Time: 19:06 cp 07/08 18:39 Order name: Labs collected and sent; Complete Time: 19:06 cp 07/08 18:39 Order name: Urine Dipstick-Ancillary (obtain specimen); Complete Time: 19:06 cp 07/08 20:16 Order name: PO challenge; Complete Time: 20:56 cp Administered Medications: 19:17 Drug: NS 0.9% 1000 ml Route: IV; Rate: 1 bolus; Site: right antecubital; iw 20:23 Follow up: IV Status: Completed infusion; IV Intake: 1000ml lc1 Disposition: 07/09 16:56 Co-signature as Attending Physician, Rene Valentin MD I agree with the assessment and kdr plan of care. Disposition: 07/08/20 20:50 Discharged to Home. Impression: Upper abdominal pain, unspecified, Low back pain. - Condition is Stable. - Discharge Instructions: Abdominal Pain, Adult, Back Pain, Adult, Back Exercises. - Prescriptions for Naprosyn 500 mg Oral Tablet - take 1 tablet by ORAL route 2 times per day take with food; 20 tablet. - Medication Reconciliation Form, Thank You Letter, Antibiotic Education, Prescription Opioid Use form. - Follow up: Private Physician; When: 1 - 2 days; Reason: Recheck today's complaints. - Problem is new. - Symptoms have improved. Signatures: Dispatcher [employer] Rosa Ledesma RN RN sv Rittger, Kevin, MD MD kdr Rachana Goodman RN RN iw Beatriz Katz lc1 Walker Plummer PA PA cp Corrections: (The following items were deleted from the chart) 07/08 21:15 20:50 07/08/2020 20:50 Discharged to Home. Impression: Upper abdominal pain, lc1 unspecified; Low back pain. Condition is Stable. Forms are Medication Reconciliation Form, Thank You Letter, Antibiotic Education, Prescription Opioid Use. Follow up: Private Physician; When: 1 - 2 days; Reason: Recheck today's complaints. Problem is new. Symptoms have improved. cp 07/09 19:04 07/08 20:20 Data reviewed: vital signs, nurses notes, lab test result(s), radiologic cp studies, CT scan, cp 07/09 19:04 07/08 20:20 Counseling: I had a detailed discussion with the patient and/or guardian cp regarding: the historical points, exam findings, and any diagnostic results supporting the discharge/admit diagnosis, lab results, radiology results, to return to the emergency department if symptoms worsen or persist or if there are any questions or concerns that arise at home, cp 07/09 19:04 07/08 20:20 Response to treatment: the patient's symptoms have markedly improved after cp treatment, patient is well hydrated. VSS. Reviewed results of labs and radiology studies. Will discharge to home for continued monitoring and oral hydration, cp
[2020-07-08 21:25] VITALS: TEMP 98.8
[2020-07-08 21:27] VITALS: O2SAT 98
[2020-07-08 21:29] VITALS: BP 123/58
== END 2020-07-08 21:15 | disposition home or self-care (01) ==
LOC: ER 17:32
DX: R10.10 Upper abdominal pain, unspecified (principal)
CPT/HCPCS: 36415; 74177; 80048; 80076; 80307; 81003; 81015; 82550; 83690; 85025; 96360; 99284; J7030; Q9967